=== PATIENT | male | born 1950 | race American Indian/Alaskan Native ===

== ENCOUNTER 2017-06-14 14:12 | Emergency (ER) | payer OTHER ==
[2017-06-14 15:14] LABS: Basophils % (Auto) 0.4 % (0.0-1.8); Eosinophils % (Auto) 1.2 % (0.0-4.3); Hematocrit 40.4 % (35.5-45.6); Hemoglobin 12.8 gm/dl (11.8-15.2); Mean Corpuscular HGB Conc 32 % (32-34); Mean Corpuscular Volume 74 fl (84-94); Platelet Count 267 K/mm3 (140-440); Red Blood Count 5.49 M/mm3 (3.65-5.03); Red Cell Distribution Width 15.4 % (13.2-15.2); White Blood Count 10.1 K/mm3 (4.5-11.0)
[2017-06-14 15:20] LABS: Mean Corpuscular Hemoglobin 23 pg (28-32)
[2017-06-14 15:28] LABS: Anion Gap 20 mmol/L; BUN/Creatinine Ratio 17.14; Blood Urea Nitrogen 12 mg/dL (9-20); Calcium 9.7 mg/dL (8.4-10.2); Carbon Dioxide 25 mmol/L (22-30); Chloride 100.4 mmol/L (98-107); Glucose 104 mg/dL (75-100); Potassium 4.2 mmol/L (3.6-5.0); Sodium 141 mmol/L (137-145)
--- NOTE | 2017-06-14 16:15 | XRay Report ---
CHEST 2 VIEWS INDICATION: Shortness of breath. COMPARISON: None similar. FINDINGS: PA and lateral chest radiographs demonstrate normal cardiomediastinal silhouette. Clear lungs. Slight thoracic spondylosis. CONCLUSION: No acute disease in the chest. Thank you for the opportunity to participate in this patient's care.
[2017-06-14] MEDS ORDERED: CATAPRES PO ONE (23:22)
[2017-06-15] MEDS ORDERED: NORCO 5/325 PO ONE (00:06)
--- NOTE | 2017-06-15 00:17 | Emergency Department Report ---
HPI - General Chief Complaint: Extremity Problem,Nontraumatic Time Seen by Provider: 06/14/17 23:19 - HPI HPI: The patient is a 66-year-old male who presents for evaluation of left ankle pain. The patient reports pain to the left ankle for the past 2 days, A/10 in severity, aching in quality, exacerbated with weightbearing or tendon ambulation , improved with rest. He shares that he twisted his ankle. The patient denies paresthesia, motor deficit, redness, color change in the foot or toes, fever. ED Past Medical Hx - Past Medical History Previous Medical History?: Yes Hx Hypertension: Yes (noncompliant with meds) - Surgical History Past Surgical History?: Yes Additional Surgical History: right foot - Social History Smoking Status: Former Smoker Substance Use Type: Alcohol - Medications Home Medications: Home Medications Medication Instructions Recorded Confirmed Last Taken Type Cyclobenzaprine [Flexeril] 10 mg PO TID PRN #20 tablet 06/14/16 06/21/16 19:00 Rx amLODIPine [Norvasc] 5 mg PO DAILY #30 tab 06/14/16 06/21/16 06/21/16 04:00 Rx Diclofenac Sodium 75 mg PO BID #20 tablet. 06/21/16 Unknown Rx HYDROcodone/APAP 5-325 [Mead 1 each PO Q6HR PRN #10 tablet 06/15/17 Unknown Rx 5-325 mg TAB] Ibuprofen [Motrin 800 MG tab] 800 mg PO Q8HR PRN #30 tablet 06/15/17 Unknown Rx ED Review of Systems ROS: Stated complaint: LEFT ANKLE PAIN Other details as noted in HPI Constitutional: denies: fever ENT: denies: throat or neck pain Respiratory: denies: cough, shortness of breath Cardiovascular: denies: chest pain Endocrine: denies unexplained weight loss or gain Gastrointestinal: denies: abdominal pain, nausea Genitourinary: denies: dysuria Musculoskeletal: reports left ankle pain Skin: denies: rash Neurological: denies: headache Hematological/Lymphatic: denies: easy bleeding or easy bruising Psych: denies sadness or hopelessness Physical Exam - Physical Exam Vital Signs: Vital Signs 06/14/17 14:35 Temperature 97.5 F L Pulse Rate 102 H Respiratory 18 Rate Blood Pressure 187/115 O2 Sat by Pulse 98 Oximetry Physical Exam: General: well-nourished, well-developed, no acute distress Head: Normocephalic, atraumatic Eyes: normal sclera ENT: Mucous membranes are pink and moist Neck: trachea midline, neck supple, No neck stiffness, no cervical adenopathy Respiratory: Breath sounds equal bilaterally, no wheezing, rales, or rhonchi Cardio: S1 and S2 present, no murmurs, rubs, gallops, capillary refill is brisk Musc: Swelling present to the left lateral malleolus, distal left malleolus tender to palpation, no obvious deformity, pulses in the left foot intact, sensation motor function in the left foot and toes intact Skin: No rash Neuro: no facial drooping, normal speech Psych: Normal affect ED Course Vital Signs 06/14/17 14:35 Temperature 97.5 F L Pulse Rate 102 H Respiratory 18 Rate Blood Pressure 187/115 O2 Sat by Pulse 98 Oximetry ED Medical Decision Making - Lab Data Result diagrams: 06/14/17 14:57 06/14/17 14:57 - Medical Decision Making The patient was seen and examined by myself. The patient is placed on a ground wood supervisor and continuous pulse ox. On initial evaluation, the patient was found to be in no distress. Evaluation orders were placed. The patient is given a tab of norco for his pain. X-ray of the ankle is negative for acute fracture dislocation. The patient was reevaluated and reported that their symptoms were markedly improved. The patient is stable for discharge with outpatient follow-up. The patient is given follow-up and return instructions. The patient expressed understanding and agreed with the plan. The patient is discharged in stable condition. Critical care attestation.: If time is entered above; I have spent that time in minutes in the direct care of this critically ill patient, excluding procedure time. ED Disposition Clinical Impression: Acute left ankle pain Sprain of left ankle Qualifiers: Encounter type: initial encounter Involved ligament of ankle: unspecified ligament Qualified Code(s): S93.402A - Sprain of unspecified ligament of left ankle, initial encounter Disposition: TO HOME OR SELFCARE Is pt being admited?: No Does the pt Need Aspirin: No Condition: Stable Instructions: Arthralgia (ED), Ankle Sprain (ED) Prescriptions: HYDROcodone/APAP 5-325 [Mead 5-325 mg TAB] 1 each PO Q6HR PRN #10 tablet PRN Reason: Pain Ibuprofen [Motrin 800 MG tab] 800 mg PO Q8HR PRN #30 tablet PRN Reason: Pain Referrals: PRIMARY CARE, [Primary Care Provider] - 3-5 Days ALYSA JUAN MD [Staff Physician] - 3-5 Days Time of Disposition: 23:17
[2017-06-15 01:00] VITALS: BP 155/95
--- NOTE | 2017-06-15 08:59 | XRay Report ---
Left ankle 3 views: History: Left ankle pain. Findings: Arthritic changes are noted in the talotibial joint and the subtalar joint. Large spur posterior inferior calcaneum. No soft tissue calcification. Impression: Arthritic changes ankle joint. No evidence of acute fracture.
== END 2017-06-15 01:00 | disposition home or self-care (01) ==
LOC: ED 14:12
DX: S93.402A Sprain of unspecified ligament of left ankle, initial encounter (principal); I10 Essential (primary) hypertension; Z87.891 Personal history of nicotine dependence; X58.XXXA Exposure to other specified factors, initial encounter; Y93.89 Activity, other specified; Y92.89 Other specified places as the place of occurrence of the external cause; Y99.8 Other external cause status
CPT/HCPCS: 36415; 71020; 80048; 84484; 85025; 93005; 93010; 99285